=== PATIENT | female | born 1960 | race Caucasian/White ===

== ENCOUNTER 2017-11-11 06:47 | Day surgery (SDC) | payer BC ==
[2017-11-11] MEDS ORDERED: Midazolam 1 MG/ML 2 ML SDV IV ONE (06:48)
[2017-11-11] MEDS ORDERED: Dexamethasone 4 MG/ML SDV IV ONE (06:48)
[2017-11-11] MEDS ORDERED: Sodium Chloride 0.9% 10 ML Syringe IV ONE (06:48)
[2017-11-11] MEDS ORDERED: Proparacaine 0.5% Ophth Soln 15 ML Bottle EYERT ONE (07:00)
[2017-11-11] MEDS ORDERED: Ondansetron 4 MG/2 ML SDV IVPUSH PRN (07:00)
[2017-11-11] MEDS ORDERED: Moxifloxacin 0.5% Ophth Soln 3 ML Bottle EYERT ONE (07:00)
[2017-11-11] MEDS ORDERED: Timolol Maleate 0.5% Ophth Soln 5 ML Bottle EYERT ONE (07:00)
[2017-11-11] MEDS ORDERED: Povidone-Iodine 5% Sterile Ophth Soln 30 ML Bottle EYERT ONE ×2 (07:00→08:19)
[2017-11-11] MEDS ORDERED: Cataract Ophth Solution EYERT ONE (07:00)
[2017-11-11] MEDS ORDERED: Phenylephrine 10% Ophth Soln 5 ML Bot EYERT PRN (07:00)
[2017-11-11] MEDS ORDERED: Acetaminophen 325 MG Tab PO PRN (07:00)
[2017-11-11] MEDS ORDERED: Phenylephrine 10% Ophth Soln 5 ML Bot EYERT ONE (07:00)
[2017-11-11] MEDS ORDERED: Sodium Chloride 0.9% 10 ML Syringe FLUSH PRN (07:00)
[2017-11-11] MEDS ORDERED: Lidocaine 1% 30 ML SDV ONE (08:18)
[2017-11-11] MEDS ORDERED: Tetracaine HCl/PF 0.5% 4 ML Bottle EYERT ONE (08:19)
[2017-11-11] MEDS ORDERED: Apraclonidine 0.5% Ophth Soln 5 ML Bot EYERT ONE (08:19)
[2017-11-11] MEDS ORDERED: Vancomycin 500 MG SDV EYERT ONE (08:20)
[2017-11-11] MEDS ORDERED: Balanced Salt Solution Ophth Irrig 500 ML Bottle IOCULAR ONE (08:20)
[2017-11-11] MEDS ORDERED: Dexamethasone/Neomycin/Polymyxin B Ophth Oint 3.5 GM Tube EYERT ONE (08:20)
[2017-11-11] MEDS ORDERED: Chondroitin Sulfate/Hyaluronate Sodium Ophth Inj 0.75 ML Syringe EYERT ONE (08:21)
--- NOTE | 2017-11-11 11:15 | OR ---
DATE: 11/11/2017 PREOPERATIVE DIAGNOSIS: Visually significant mixed cataract, right eye. POSTOPERATIVE DIAGNOSIS: Visually significant mixed cataract, right eye. PROCEDURE: Extracapsular cataract extraction with intraocular lens implant, right eye. ANESTHESIA: Topical/local MAC. COMPLICATIONS: None. INDICATION: Ms. Chilel was seen in the clinic with complaints of blurred vision. Clinical examination revealed visually significant cataract. I explained options; I offered cataract surgery; and I explained risks including the potential for infection, retinal detachment, loss of vision, and need for additional surgery amongst others. We discussed implant options. She has requested a multifocal implant. I did explain the increased potential for glare, halo, and dysphotopsia associated with multifocal technology. She also understands that she may still require glasses for some limited activities. She has voiced an understanding with respect to risks including the potential for vision loss and wished to proceed. OPERATIVE DESCRIPTION: After informed consent was obtained and the risks, benefits, and alternatives were explained, the patient was brought to the operative suite and topical anesthesia was administered. The patient was then prepped and draped in the sterile fashion, and attention was placed on the right eye. A sterile lid speculum was placed into the right eye to allow operative exposure. A full-thickness paracentesis was made in the temporal portion of the operative eye. Preservative-free lidocaine 0.1 mL was injected into the anterior chamber followed by viscoelastic. A full-thickness corneal incision was then made into the anterior chamber. A bent needle cystotome was used to create a small ree in the anterior capsule. The capsulorrhexis forceps was then used to create a 360-degree curvilinear capsulorrhexis. The nucleus was then removed using a phacoemulsification handpiece, and the remaining cortical material was then removed with irrigation and aspiration handpiece. Following removal of the cortical material, the capsular bag was then inspected and noted to be free of any holes or tears. Viscoelastic was then injected into the capsular bag, and the intraocular lens was inserted into the capsular bag. The viscoelastic material was then removed from both the anterior and posterior chambers and from behind the IOL. The lens and capsular bag were then reinspected. The IOL was well centered and the capsular bag intact. The wound and paracentesis sites were inspected and hydrated with balanced saline solution. Both were found to be self-sealing. The intraocular pressure was assessed digitally and found to be within normal range. A good red reflex was noted at the completion of the procedure. No complications occurred during the operation. At the completion of the procedure, Maxitrol, Voltaren, and Iopidine drops were placed into the operative eye. A sterile eye shield was placed over the operative eye, and the patient was transported to the postoperative recovery area having tolerated the procedure well. Postoperative instructions were given along with a postoperative appointment. The patient was advised to call with any questions or concerns. [facility] /[id number]
== END 2017-11-11 09:10 | disposition home or self-care (01) ==
LOC: DL.SDS 06:47
PROVIDERS: ATTEND Ophthalmology
DX: H25.811 Combined forms of age-related cataract, right eye (principal); Z88.0 Allergy status to penicillin; Z98.49 Cataract extraction status, unspecified eye
CPT/HCPCS: 66984; A9270; J1100; J2250; J3370; J7050

== ENCOUNTER 2022-08-13 21:31 | Emergency (ER) | payer BC ==
[2022-08-13] MEDS ORDERED: Acetaminophen/HYDROcodone 325-10 MG Tab PO ONE (21:32)
[2022-08-13] MEDS ORDERED: Ketorolac 10 MG Tab PO ONE (21:32)
[2022-08-13] MEDS ORDERED: Ondansetron 4 MG/2 ML SDV IVPUSH ONE (21:43)
[2022-08-13] MEDS: Sodium Chloride 0.9% 1,000 ML IV ONE ×2 (21:44→23:50)
[2022-08-13] MEDS ORDERED: HYDROmorphone 0.5 MG/0.5 ML Syringe IVPUSH ONE ×2 (22:11→22:26)
[2022-08-13 22:17] LABS: ANION GAP 14.1 mEq/L (7-13)
[2022-08-13] MEDS ORDERED: Ketorolac 30 MG/ML SDV IVPUSH ONE (23:32)
[2022-08-13] MEDS ORDERED: Tamsulosin 0.4 MG Cap.ER PO ONE (23:32)
[2022-08-13] MEDS ORDERED: Sodium Chloride 0.9% 1,000 ML IV ONE (23:39)
[2022-08-13] MEDS ORDERED: Acetaminophen/HYDROcodone 325-10 MG Tab ONE (23:54)
[2022-08-13] MEDS ORDERED: Ketorolac 10 MG Tab ONE (23:55)
== END 2022-08-14 00:25 | disposition home or self-care (01) ==
LOC: DL.ED 21:31
DX: N13.2 Hydronephrosis with renal and ureteral calculous obstruction (principal); I10 Essential (primary) hypertension; Z88.5 Allergy status to narcotic agent; Z88.0 Allergy status to penicillin
CPT/HCPCS: 36415; 74176; 80053; 81001; 83605; 85025; 87040; 96361; 96374; 96375; 99284; A9270; J1170; J1885; J2405; J7030